=== PATIENT | female | born 1990 | race Hispanic/Latino ===

== ENCOUNTER → 2018-02-24 | Outpatient (CLI) | payer OTHER | LOC: M LRY 19:11 | DX: M17.9 Osteoarthritis of knee, unspecified (principal) | CPT/HCPCS: 73564; G0463 ==

== ENCOUNTER → 2018-10-26 | Outpatient (REF) | payer OTHER | LOC: M SFHCLERA 10:16 | PROVIDERS: ATTEND Physician Assistant | DX: J02.9 Acute pharyngitis, unspecified (principal) ==

== ENCOUNTER → 2019-05-18 | Outpatient (REF) | payer OTHER | LOC: M SFHCLERA 13:28 | PROVIDERS: ATTEND Nurse Practitioner Family | DX: J02.9 Acute pharyngitis, unspecified (principal) ==

== ENCOUNTER → 2019-06-19 | Outpatient (CLI) | payer OTHER ==
[~2019-06-19] MED LIST: KETO10TAB PO; METH1TAB40; NAPR-885; NORC1TAB7 PO
--- NOTE | 2019-06-19 13:42 | REP ---
Left humerus: Three views. History: Injury. A Findings: Three views left humerus demonstrate normal bones, joints, and soft tissues. No fracture or subluxation is seen. Impression: Negative radiographs of the left humerus. Electronically Signed by Sandor Noland MD 06/19/2019 01:34 P
== END ==
LOC: M LRY 13:20
PROVIDERS: ATTEND Nurse Practitioner Family
DX: S49.92XA Unspecified injury of left shoulder and upper arm, initial encounter (principal)
CPT/HCPCS: 73060; 96372; G0463; J1885

== ENCOUNTER 2019-06-25 08:55 | Emergency (ER) | payer OTHER ==
[~2019-06-25] VITALS: Ht 157.5 cm; Wt 85.6 kg
[2019-06-25 08:55] VITALS: BP 133/76
[2019-06-25] MEDS ORDERED: NAPR-885 (09:06)
[2019-06-25] MEDS ORDERED: METH1TAB40 (09:06)
[2019-06-25] MEDS ORDERED: KETOROLAC 60 MG/2 ML VIAL (J1885) IM ONE (09:15)
[2019-06-25] MEDS ORDERED: NORC1TAB7 PO ×2 (09:37→09:38)
[2019-06-25] MEDS ORDERED: KETO10TAB PO (09:39)
--- NOTE | 2019-06-25 09:55 | REP ---
LEFT SHOULDER: Three views. There is no evidence of an acute fracture, dislocation or intrinsic bone disease. IMPRESSION: No fracture or dislocation. Electronically Signed by Eloy Maloney MD 06/25/2019 04:45 P
== END 2019-06-25 09:45 | disposition home or self-care (01) ==
LOC: M ED 08:55
DX: S43.402A Unspecified sprain of left shoulder joint, initial encounter (principal); W01.198A Fall on same level from slipping, tripping and stumbling with subsequent striking against other object, initial encounter; Y92.009 Unspecified place in unspecified non-institutional (private) residence as the place of occurrence of the external cause; Y93.89 Activity, other specified; Y99.8 Other external cause status; Z79.899 Other long term (current) drug therapy
CPT/HCPCS: 73030; 96372; 99283; J1885

== ENCOUNTER → 2019-07-21 | Outpatient (REF) | payer OTHER | LOC: M SFHCLERA 15:10 | PROVIDERS: ATTEND Physician Assistant | DX: J02.9 Acute pharyngitis, unspecified (principal) ==